=== PATIENT | female | born 1995 | race Caucasian/White ===

== ENCOUNTER 2019-10-23 17:23 | Inpatient (IN) | payer BC ==
[~2019-10-23] VITALS: Ht 172.7 cm; Wt 83.2 kg
[2019-10-23] VITALS (19 sets, daily range): BP systolic 118–131; BP diastolic 70–90; PULSE 64–98; TEMP 97.8–98.8
--- NOTE | 2019-10-23 17:33 | NUR ---
1733-Patient to LR 3 direct from office. Assisted into gown and placed on EFM. Maternal BP 147/88, heart rate 129. Updated on plan of care. 1745-IV to left hand by JANICE Jasmine. LR infusing. Assessment complete. Lab to patient room to draw ordered labs. 1755-Dr. High discussing plan of care with patient and patient and MD make decision for C/S. 1800-Consents reviewed and signed. 1804-Abdomen prepped and mons pubis clipped. Off EFM and ambulatory to OR.
[2019-10-23] MEDS ORDERED: PRENATAL (17:45)
[2019-10-23 18:00] LABS: HEMOGLOBIN 11.7 g/dl (12.5-16.0); MEAN CELL VOLUME 91 fl (80.0-100.0); MEAN CORPUSCULAR HEMOGLOBIN 31 pg (27.0-31.0); MEAN CORPUSCULAR HGB CONC 33 g/dl (33.0-37.0); MEAN PLATELET VOLUME 11.5 fl (7.4-10.4); PLATELET COUNT 194 K/mm3 (130-400); RED BLOOD COUNT 3.84 M/mm3 (4.10-5.30); REDCELL DISTRIBUTION WIDTH-CV 13.1 % (11.5-14.5)
--- NOTE | 2019-10-23 18:25 | NUR ---
1825-Reported off to JANICE Fonseca who assumes care of patient in OR at this time.
[2019-10-23 18:51] LABS: BAND 1 % (0-10); EOSINOPHIL 1 % (0-4); LYMPHOCYTE 7 % (20.0-51.0); NEUTROPHILS 84 % (42.0-75.2); PLATELET ESTIMATE NORMAL (NORMAL)
[2019-10-23 20:16] LABS: HEMOGLOBIN 11.4 g/dl (12.5-16.0)
[2019-10-23 20:20] LABS: HEMATOCRIT 33.4 % (37.0-47.0)
[2019-10-23 20:31] LABS: INR 0.9 (0.8-3.0); PROTHROMBIN TIME 10.9 SECONDS (9.7-12.8)
[2019-10-23 20:34] LABS: PARTIAL THROMBOPLASTIN TIME 26.8 SECONDS (26.0-37.0)
--- NOTE | 2019-10-23 23:27 | NUR ---
RESTS BETWEEN CHECKS. TO NSY TO VISIT BABY SEVERAL TIMES. DENIES NEEDS-SNACK GIVEN
[2019-10-24 01:15] VITALS: BP 124/78; PULSE 76; TEMP 98.1
[2019-10-24 06:28] LABS: HEMOGLOBIN 10.6 g/dl (12.5-16.0); MEAN CELL VOLUME 91 fl (80.0-100.0); MEAN CORPUSCULAR HEMOGLOBIN 32 pg (27.0-31.0); MEAN CORPUSCULAR HGB CONC 34 g/dl (33.0-37.0); MEAN PLATELET VOLUME 11.5 fl (7.4-10.4); PLATELET COUNT 164 K/mm3 (130-400); RED BLOOD COUNT 3.37 M/mm3 (4.10-5.30); REDCELL DISTRIBUTION WIDTH-CV 13.2 % (11.5-14.5)
[2019-10-24 06:31] LABS: HEMATOCRIT 30.8 % (37.0-47.0)
[2019-10-24 07:30] VITALS: BP 118/80; PULSE 85; TEMP 98.4
[2019-10-24 18:21] VITALS: BP 112/68; PULSE 78
[2019-10-24 20:30] VITALS: BP 118/77; PULSE 88; TEMP 98.4
[2019-10-25] MEDS ORDERED: IBU800 M1 PO (08:46)
[2019-10-25] MEDS ORDERED: PERCOCET 325 MG1 TA2 PO (08:46)
[2019-10-25 09:07] LABS: MEAN CELL VOLUME 94 fl (80.0-100.0); MEAN CORPUSCULAR HGB CONC 33 g/dl (33.0-37.0); PLATELET COUNT 181 K/mm3 (130-400); REDCELL DISTRIBUTION WIDTH-CV 13.6 % (11.5-14.5)
[2019-10-25 09:12] LABS: HEMATOCRIT 27.2 % (37.0-47.0); HEMOGLOBIN 8.9 g/dl (12.5-16.0); MEAN CORPUSCULAR HEMOGLOBIN 31 pg (27.0-31.0)
[2019-10-25 09:30] VITALS: BP 111/81; PULSE 86; TEMP 98.5
[2019-10-25 16:10] VITALS: BP 139/76; PULSE 74
[2019-10-25 20:40] VITALS: BP 114/61; PULSE 85; TEMP 97.7
[2019-10-26] MEDS ORDERED: IRON TABLETS325 MG PO (08:55)
[2019-10-26 08:56] VITALS: BP 127/79; PULSE 82; TEMP 97.9
--- NOTE | 2019-10-26 11:45 | NUR ---
Dishcarge instrunctions given, pt verbalizes understanding. No further questions. Bands matched and hugs tag removed.
== END 2019-10-26 12:00 | disposition home or self-care (01) | DRG 786 ==
LOC: LDRO 17:23 → LDR 17:30 → LDRO 17:54 → OB 20:15
PROVIDERS: ADMIT Student in an Organized Health Care Education/Training Program
PROC: 10D00Z1 Extraction of Products of Conception, Low, Open Approach (ICD-10-PCS; principal; 2019-10-23)
DX: O36.8130 Decreased fetal movements, third trimester, not applicable or unspecified (principal); O45.93 Premature separation of placenta, unspecified, third trimester; D62 Acute posthemorrhagic anemia; Z3A.38 38 weeks gestation of pregnancy; Z37.0 Single live birth; O76 Abnormality in fetal heart rate and rhythm complicating labor and delivery; K21.9 Gastro-esophageal reflux disease without esophagitis; O99.62 Diseases of the digestive system complicating childbirth; O99.02 Anemia complicating childbirth
CPT/HCPCS: J0690; J1885; J2175; J2210; J2370; J2405; J2590; J3010; J7120